=== PATIENT | female | born 1940 | race Caucasian/White ===

== ENCOUNTER → 2017-12-04 | Outpatient (CLI) | payer OTHER ==
[~2017-12-04] MED LIST: KEFLEX500 MG PO; LEVOTHYROXIN0.075 MG PO; ROSUVASTATIN CA20 MG PO; ZOLOFT50 MG PO
== END ==
LOC: RAD 01:50
DX: Z12.31 Encounter for screening mammogram for malignant neoplasm of breast (principal)

== ENCOUNTER → 2018-12-05 | Outpatient (CLI) | payer OTHER | LOC: RAD 02:25 | DX: Z12.31 Encounter for screening mammogram for malignant neoplasm of breast (principal) ==